=== PATIENT | male | born 1975 ===

== ENCOUNTER 2021-03-24 15:35 | Emergency (ER) | payer OTHER, SELFPAY ==
--- NOTE | ~2021-03-24 | XR_ITS ---
EXAMINATION: XR tibia fibula LT 2V, XR knee LT 4V CLINICAL INFORMATION: Reason for Exam knee/lower leg injury due to pain after playing sports COMPARISON: None available at the time of this dictation. TECHNIQUE: frontal, lateral, tunnel and patella sunrise views , frontal and lateral tibia-fibula. FINDINGS: BONES: No fracture or dislocation is present. JOINTS: Joint spaces are preserved. SOFT TISSUE: Normal XR/XR knee LT 4V IMPRESSION: No acute osseous changes. No fracture.
--- NOTE | ~2021-03-24 | US_ITS ---
EXAMINATION: US VENOUS ULTRASOUND WITH DOPPLER LOWER EXTREMITY, LEFT CLINICAL INFORMATION: Pain COMPARISON: None TECHNIQUE: Ultrasound of the deep veins is performed from the hip to the calf with compression sonography and color and pulse Doppler assessment. Spectral analysis with color-flow imaging is performed. FINDINGS: There is normal venous compression and respiratory variation and augmented flow. The visualized common femoral vein, superficial femoral vein, profunda femoral vein, popliteal vein, and the trifurcation region shows no evidence of deep venous thrombosis. There is no significant popliteal fossa cyst. If the patient's symptoms persist, followup ultrasound in 5 days 7 days might be of value to exclude proximal propagation from a non-visualized calf vein. US/US venous duplex LE LT IMPRESSION: No DVT demonstrated in the left lower extremity.
--- NOTE | ~2021-03-24 | XR_ITS ---
EXAMINATION: XR tibia fibula LT 2V, XR knee LT 4V CLINICAL INFORMATION: Reason for Exam knee/lower leg injury due to pain after playing sports COMPARISON: None available at the time of this dictation. TECHNIQUE: frontal, lateral, tunnel and patella sunrise views , frontal and lateral tibia-fibula. FINDINGS: BONES: No fracture or dislocation is present. JOINTS: Joint spaces are preserved. SOFT TISSUE: Normal XR/XR tibia fibula LT 2V IMPRESSION: No acute osseous changes. No fracture.
[2021-03-24 15:53] VITALS: BP 123/92; PULSE 81; RESP 18; TEMP 36.7; O2SAT 97; BMI 31.0
[2021-03-24 16:33] LABS: MANUAL DIFF FLAG NO
[2021-03-24 16:39] LABS: Basophils Percent Auto 0.3 % (0-2); Eosinophils Absolute Auto 0.1 X10*3/uL (0.0-0.4); Eosinophils Percent Auto 1.3 % (0-4); Hematocrit 40.9 % (42-52); Hemoglobin 13.9 g/dl (14.0-18.0); Imm Gran Abs Auto 0.02 X10*3/uL (0.00-0.03); Imm Gran Pct Auto 0.2 % (0.0-0.4); Lymphocytes Absolute Auto 2.4 X10*3/uL (1.2-4.9); Lymphocytes Percent Auto 25.7 % (20-40); Mean Corpuscular Hemoglobin 29.6 pg (27.0-33.0); Mean Corpuscular Volume 87.2 fL (80-98); Mean Platelet Volume 9.4 fL (9.4-12.4); Monocytes Absolute Auto 0.9 X10*3/uL (0.1-1.2); Monocytes Percent Auto 9.1 % (2-11); Neutrophils Percent Auto 63.4 % (45-73); Platelet Count 298 X10*3/uL (160-400); Red Blood Count 4.69 X10*6/uL (4.60-5.80); Red Cell Distribution Width 12.9 % (11.0-16.0); White Blood Count 9.4 X10*3/uL (4.8-10.8)
[2021-03-24 16:46] LABS: INTERNATIONAL NORM RATIO 1.5 (0.9-1.1); Prothrombin Time 16.9 SEC (9.9-13.0)
[2021-03-24 16:52] VITALS: BP 133/89; PULSE 76; RESP 18; TEMP 36.8; O2SAT 99
[2021-03-24 17:16] LABS: Anion Gap 15 (12-20); Blood Urea Nitrogen 25 mg/dL (9-16); Calcium 9.4 mg/dL (8.4-10.2); Carbon Dioxide 23 mmol/L (22-29); Chloride 107 mmol/L (96-108); Creatinine Clr Calc Pharmacy 132.8; Estimated Glomerular Filt Rate > 60; Glucose Random 89 mg/dL (60-115); Potassium 4.6 mmol/L (3.3-5.1); Sodium 140 mmol/L (135-145)
--- NOTE | 2021-03-24 17:56 | ED.EXTPRO ---
HPI - Extremity Problem General Chief complaint: General Medical Stated complaint: ordered him to get evaluated Time Seen by Provider: 03/24/21 16:54 Source: patient Mode of arrival: ambulatory Limitations: no limitations History of Present Illness HPI Narrative: 46-year-old male presenting to the ED with complaints of left knee/lower leg/calf pain after he was playing sports while he was running he fell a sharp pain and since then he has been having pain. He was sent by his primary care provider to rule out DVT. He denies any actual falls, dizziness, headaches, change of vision, nausea/vomiting, chest pain, shortness of breath, palpitations, dyspnea on exertion, orthopnea, hypercoagulation disorder, history of DVT or PE, recent surgery or immobilization, history of cancer or any estrogen usage or any other symptoms complaints or concerns at this time. MD Complaint: extremity pain Onset (ago): day(s) (Few days worse today) Pain Consistency: constant Location: left, lower extremity and knee Quality: constant and other (Pulling pain sensation) Radiation: distal Relieving factors: nothing Exacerbating factors: range of motion, weight bearing, walking and palpation Associated symptoms: denies other symptoms Related Data Previous Rx's Medication Instructions Recorded cyclobenzaprine 10 mg tablet 10 mg PO Q8H #10 tab 03/24/21 ibuprofen 800 mg tablet 800 mg PO Q8H PRN #14 tab 03/24/21 tramadol 50 mg tablet 50 mg PO BID PRN #14 tab 03/24/21 Allergies Allergy/AdvReac Type Severity Reaction Status Date / Time No Known Allergies Allergy Verified 03/24/21 15:55 Review of Systems Review of Systems: Constitutional : No Weight loss, No Fever, No Chills, No Night Sweats, No Fatigue, No Malaise ENT/Mouth : No Hearing loss, No Ear Pain, No Nasal Congestion, No Sinus Pain, No Hoarseness, No sore throat, No Rhinorrhea, No Swallowing Difficulty Eyes: No Eye Pain, No Swelling, No Redness, No Foreign Body, No Discharge, No Vision Changes Cardiovascular : No Chest Pain, No SOB, No Dyspnea on Exertion, No Orthopnea, No Edema, No Palpitations Respiratory : No Cough, No Sputum, No Wheezing, No Smoke Exposure, No Dyspnea Gastrointestinal : No Nausea, No Vomiting, No Diarrhea, No Constipation, No abdominal Pain, No Hematochezia, No Melena Genitourinary : no irregular bleeding, No Dysuria, No Urinary Frequency, No Hematuria, No Urinary Incontinence, No Urgency, No Flank Pain, No Urinary Flow Changes, No Hesitancy Musculoskeletal : Left knee joint pain/left lower extremity pain, No Myalgias, No Joint Swelling Skin : No Skin Lesions, No rash Neuro : No Weakness, No Numbness, No Paresthesias, No Loss of Consciousness, No Dizziness, No Headache Psych : No Anxiety/Panic, No Depression, No SI/HI/AH/VH, No Social Issues, Heme/Lymph: No Bruising, No Bleeding,No Lymphadenopathy Endocrine : No Polyuria, No Polydipsia, No Temperature Intolerance Yes all other systems are reviewed and are negative [facility] Past Medical History Attestation statement: The following information was validated with the patient. Social History Social History Advance Directives: No Advance Directives Information Provided: No Physical Exam Vital Signs: Vital Signs: Last Vital Signs Temp 98.3 F 03/24/21 16:52 Pulse 76 03/24/21 16:52 Resp 18 03/24/21 16:52 BP 133/89 03/24/21 16:52 Pulse Ox 99 03/24/21 16:52 Body Mass Index 31.0 vital signs have been reviewed as normal and appeared to be correct. Blood pressure mildly hypertensive at 123/92. Heart rate normal. Respiration rate normal. Temperature normal. Oxygen saturation normal. Appearance: Alert. Oriented X3. No acute distress. Head: Normal external exam. Normocephalic. Atraumatic. Eyes: PERRLA. EOMI. Conjunctiva and sclera normal. Eyelids normal. ENT: Pharynx normal. Uvula midline. Moist mucous membranes. Neck: Normal inspection. Neck supple. FROM. No adenopathy. No meningeal signs. CVS: Normal heart rate and rhythm. Heart sound normal. Pulses normal throughout. No murmurs/rales/gallops. Respiratory: No respiratory distress. Painless inspiration. Breath sounds normal. No wheezes/rales/rhonchi noted. Chest nontender. No accessory muscle usage noted or decreased air movement noted. Back: Full range of motion noted. No rashes/lesion/induration/fluctuance or signs of infection noted. Skin: Skin warm and dry. Normal skin color. Normal skin turgor. No rashes/lesions/lacerations noted. Extremities: Patient with tenderness palpation to left knee at the patellar and medial aspect although patient has full range of motion no obvious deformities or ligamentous laxity noted. No signs of infection or joint effusion noted. Patient with mild tenderness palpation to left lower leg with calf tenderness. No lower extremity edema. Otherwise all other Extremities exhibit normal range of motion and nontender. Neuro: Oriented X 3. No motor deficit. No sensory deficit. Reflexes normal. Normal steady gait. No focal neuro deficits noted. Vascular: + radial pulses/+ 2 distal pedal pulses/+2 dorsalis pedis b/l. Normal cap refill. No cyanosis noted to upper extremity nails and lower extremity toes nails. Course Course Course Narrative: 17pm - 46-year-old male presenting to the ED with complaints of left knee/lower leg/calf pain after he was playing sports while he was running he fell a sharp pain and since then he has been having pain. He was sent by his primary care provider to rule out DVT. Plan: Labs, venous duplex ultrasound of left lower extremity x-ray of left knee and tibia-fibula then re-evaluate. Reevaluation(s) Reevaluation #1: - labs obtained and patient with a mild baseline anemia. BUN 25. Venous duplex ultrasound of left lower extremity negative for DVT. X-ray of left knee and left lower leg negative for any fractures or any other acute processes. Therefore patient most likely muscle strain. His tendons appear to be intact. Will DC home with symptomatic treatment and instructions return if any new or worsening symptoms to follow up with primary care provider. Patient understands agrees with this plan. Time: 18:34 MDM - Extremity (Nontraumatic) Medical Records Attestation: I reviewed the patient's medical records. Lab Data Result diagrams: 03/24/21 16:24 03/24/21 16:24 Labs: Lab Results 03/24/21 03/24/21 03/24/21 Range/Units 16:24 16:24 16:24 WBC 9.4 (4.8-10.8) X10*3/uL RBC 4.69 (4.60-5.80) X10*6/uL Hgb 13.9 L (14.0-18.0) g/dl Hct 40.9 L (42-52) % MCV 87.2 (80-98) fL MCH 29.6 (27.0-33.0) pg MCHC 34.0 (31.0-36.0) g/dl RDW 12.9 (11.0-16.0) % Plt Count 298 (160-400) X10*3/uL MPV 9.4 (9.4-12.4) fL Immature Gran % (Auto) 0.2 (0.0-0.4) % Neut % (Auto) 63.4 (45-73) % Lymph % (Auto) 25.7 (20-40) % [place] % (Auto) 9.1 (2-11) % Eos % (Auto) 1.3 (0-4) % Baso % (Auto) 0.3 (0-2) % Lymph # (Auto) 2.4 (1.2-4.9) X10*3/uL [place] # (Auto) 0.9 (0.1-1.2) X10*3/uL Eos # (Auto) 0.1 (0.0-0.4) X10*3/uL Baso # (Auto) 0.0 (0.0-0.2) X10*3/uL Abs Immat Gran (auto) 0.02 (0.00-0.03) X10*3/uL Absolute Neuts (auto) 6.0 (2.0-8.3) X10*3/uL Absolute Nucleated RBC 0.000 (0.0-0.012) X10*3/uL Nucleated RBC % (auto) 0.0 (0.0-0.2) /100WBC PT 16.9 H (9.9-13.0) SEC INR 1.5 H (0.9-1.1) Sodium 140 (135-145) mmol/L Potassium 4.6 (3.3-5.1) mmol/L Chloride 107 (96-108) mmol/L Carbon Dioxide 23 (22-29) mmol/L Anion Gap 15 (12-20) BUN 25 H (9-16) mg/dL Creatinine 0.80 (0.5-1.4) mg/dL Estim Creat Clear Calc 132.8 Estimated GFR > 60 Random Glucose 89 (60-115) mg/dL Calcium 9.4 (8.4-10.2) mg/dL Imaging Data Venous duplex ultrasound of left lower extremity: Attestation: I personally reviewed and interpreted this imaging study as follows: Radiologist's impression: FINDINGS: There is normal venous compression and respiratory variation and augmented flow. The visualized common femoral vein, superficial femoral vein, profunda femoral vein, popliteal vein, and the trifurcation region shows no evidence of deep venous thrombosis. ? There is no significant popliteal fossa cyst. If the patient's symptoms persist, followup ultrasound in 5 days 7 days might be of value to exclude proximal propagation from a non-visualized calf vein. US/US venous duplex LE LT IMPRESSION: No DVT demonstrated in the left lower extremity. Left tibia/fibula x-ray and left knee x-ray: Attestation: I personally reviewed and interpreted this imaging study as follows: Radiologist's impression: FINDINGS: BONES: No fracture or dislocation is present. JOINTS: Joint spaces are preserved. SOFT TISSUE: Normal XR/XR tibia fibula LT 2V IMPRESSION: No acute osseous changes. No fracture.? FINDINGS: BONES: No fracture or dislocation is present. JOINTS: Joint spaces are preserved. SOFT TISSUE: Normal XR/XR knee LT 4V IMPRESSION: No acute osseous changes. No fracture.? Discharge Plan Discharge Clinical Impression: Muscle strain of left lower extremity Patient Disposition: Home, Self-Care Instructions: Muscle Strain (ED) Prescriptions: New cyclobenzaprine 10 mg tablet 10 mg PO Q8H Qty: 10 RF: 0 ibuprofen 800 mg tablet 800 mg PO Q8H PRN (Reason: pain) Qty: 14 RF: 0 tramadol 50 mg tablet 50 mg PO BID PRN (Reason: pain) Qty: 14 RF: 0 Referrals: Birdie Chicas MD [Primary Care Provider] - 2 days Stand Alone Forms: Work/School Release Print Language: [place]
== END 2021-03-24 18:58 | disposition home or self-care (01) ==
PROVIDERS: Emergency Provider Emergency Medicine; PCP Internal Medicine
DX: S86.912A Strain of unspecified muscle(s) and tendon(s) at lower leg level, left leg, initial encounter (principal); X50.9XXA Other and unspecified overexertion or strenuous movements or postures, initial encounter; M79.662 Pain in left lower leg; Y93.02 Activity, running; Y92.39 Other specified sports and athletic area as the place of occurrence of the external cause; Y99.9 Unspecified external cause status
CPT/HCPCS: 36415; 73564; 73590; 80048; 85025; 85610; 93971; 99283; 99284

== ENCOUNTER 2021-08-02 11:38 | Outpatient (REF) | payer OTHER, SELFPAY ==
[2021-08-02 13:34] LABS: Prostate Specific Antigen 0.68 ng/mL (<0.05-4.0)
== END 2021-08-02 11:39 | disposition home or self-care (01) ==
LOC: HO.LAB 11:38
PROVIDERS: PCP Internal Medicine; Visit Provider Internal Medicine
DX: Z12.5 Encounter for screening for malignant neoplasm of prostate (principal)
CPT/HCPCS: 36415; 84153

== ENCOUNTER 2021-09-20 08:22 | Outpatient (REF) | payer OTHER, SELFPAY ==
--- NOTE | ~2021-09-20 | XR_ITS ---
EXAMINATION: XR HAND, LEFT CLINICAL INFORMATION: Left hand pain COMPARISON: None TECHNIQUE: PA, lateral, and oblique views of the left hand. XR/XR hand LT min 3V FINDINGS AND IMPRESSION: Bones have normal alignment throughout the hand and wrist. The joint spaces are maintained. Acute intra-articular fracture at the dorsal base of the distal phalanx of the fourth digit is nondisplaced. Soft tissues are mildly swollen in the fourth digit. No other fractures.
== END 2021-09-20 08:23 | disposition home or self-care (01) ==
LOC: HO.HOSX 08:22
PROVIDERS: Visit Provider Orthopaedic Surgery
DX: S62.635A Displaced fracture of distal phalanx of left ring finger, initial encounter for closed fracture (principal); S63.635A Sprain of interphalangeal joint of left ring finger, initial encounter
CPT/HCPCS: 26750; 73130; 99202

== ENCOUNTER 2021-11-08 09:28 | Outpatient (REF) | payer OTHER, SELFPAY ==
--- NOTE | ~2021-11-08 | XR_ITS ---
EXAMINATION: XR HAND, LEFT CLINICAL INFORMATION: Pain COMPARISON: None TECHNIQUE: PA, lateral, and oblique views of the left hand. FINDINGS: There is a mildly displaced fracture involving the dorsal and ulnar base of the fourth distal phalanx with intra-articular extension. No additional fractures. Soft tissues unremarkable. No radiopaque foreign bodies. XR/XR hand LT min 3V IMPRESSION: Mildly displaced fracture of the dorsal and ulnar base of the fourth distal phalanx with intra-articular extension.
== END 2021-11-08 09:29 | disposition home or self-care (01) ==
LOC: HO.HOSX 09:28
PROVIDERS: Visit Provider Orthopaedic Surgery
DX: S62.635D Displaced fracture of distal phalanx of left ring finger, subsequent encounter for fracture with routine healing (principal); X58.XXXD Exposure to other specified factors, subsequent encounter
CPT/HCPCS: 73130; 99212

== ENCOUNTER 2022-10-11 14:28 | Outpatient (REF) | payer OTHER, SELFPAY ==
[2022-10-11 16:24] LABS: Prostate Specific Antigen Scr 1.11 ng/mL (<0.05-4.0)
== END 2022-10-11 14:29 | disposition home or self-care (01) ==
LOC: HO.LAB 14:28
PROVIDERS: PCP Internal Medicine; Visit Provider Internal Medicine
DX: G47.33 Obstructive sleep apnea (adult) (pediatric) (principal); I10 Essential (primary) hypertension; Z80.42 Family history of malignant neoplasm of prostate; Z12.5 Encounter for screening for malignant neoplasm of prostate
CPT/HCPCS: 36415; 84153

== ENCOUNTER 2023-04-26 06:42 | Day surgery (SDC) | payer OTHER, SELFPAY ==
--- NOTE | 2023-04-25 10:14 | HO.ANESPROP2 ---
Documented by User: Corrina Kay NP 04/25/23 10:15 HPI - Anesthesia Eval Consult details Narrative: 48yo M for Colonoscopy PMFSH Active Problems Active Problems: All Active Problems (Updated 04/25/23 @ 07:50 by Kerri Damon) Sprain of interphalangeal joint of left ring finger, initial encounter (Acute) Fracture of distal phalanx of left ring finger (Acute) Past Medical History Medical History (Updated 04/25/23 @ 07:50 by Kerri Damon) Environmental allergies Obstructive sleep apnea HLD (hyperlipidemia) HTN (hypertension) Surgical History Surgical History (Updated 04/26/23 @ 06:54 by Naheed Mason, JUAN) Hx of colonoscopy No pertinent past surgical history Social History Social History Patient Tobacco Use Status: Never used Tobacco Are you DNR?: No Advance Directives: No Advance Directives Information Provided: Yes Recently lost weight without trying: No Nutrition Risks: No Nutritional Risk Current occupational status: employed 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 Meds Allergies Allergy/AdvReac Type Severity Reaction Status Date / Time No Known Allergies Allergy Verified 09/20/21 09:52 Home Medications Medication Instructions Recorded Confirmed Last Taken Type No Known Home Meds 04/26/23 04/26/23 Unknown History Exam Exam Date and Time: April 25, 2023 1014 Assessment and Plan Assessment Anesthesia Assessment: Chart Reviewed Documented by User: Davida Atkins MD 04/26/23 07:11 [facility] Past Medical History Medical History (Updated 04/25/23 @ 07:50 by Kerri Damon) Environmental allergies Obstructive sleep apnea HLD (hyperlipidemia) HTN (hypertension) Family History Family history of problems with anesthesia: No Surgical History Surgical History (Updated 04/26/23 @ 06:54 by Naheed Mason RN) Hx of colonoscopy No pertinent past surgical history History of Problems with Anesthesia: No Social History Social History Patient Tobacco Use Status: Never used Tobacco Are you DNR?: No Advance Directives: No Advance Directives Information Provided: Yes Recently lost weight without trying: No Nutrition Risks: No Nutritional Risk Current occupational status: employed 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 Meds Allergies Allergy/AdvReac Type Severity Reaction Status Date / Time No Known Allergies Allergy Verified 09/20/21 09:52 Home Medications Medication Instructions Recorded Confirmed Last Taken Type No Known Home Meds 04/26/23 04/26/23 Unknown History Exam Airway Mallampati Class: III TM Dist: >3cm Neck ROM: Full Assessment and Plan Assessment Anesthesia Assessment: Anesthesia Plan Discussed Final Anesthetic Review Family History of Problems with Anesthesia: No History of Problems with Anesthesia: No NPO: Yes ASA Class: II Final Preanesthetic Review: No Changes in Pt Med Stat, Meds/Allgs Chart Reviewed, Consent Obtained/Reviewed and Anes Risks/Benef Reviewed Patient Risk: Intermediate Procedure Risk: Low Anesthetic Plan Anesthetic Plan: MAC: Disposition: Standard PACU
[2023-04-26 06:55] VITALS: BMI 31.5
[2023-04-26 06:59] VITALS: BP 133/88; PULSE 81; RESP 18; TEMP 36.1; O2SAT 98
[2023-04-26] MEDS: Lactated Ringers 1,000 ML 100 ML IVCONT (07:05)
--- NOTE | 2023-04-26 07:30 | MHC.SHP ---
Pre-Procedural Eval Section A Date of Service: 04/26/23 Section B Chief Complaint: screening Details of Present Illness: see H&P no changes Relevant Family History (Specify if Yes): No Relevant Social History: None Present Medications: see Short Stay Collaborative assessment Medical History: No relevant PMH History of Previous Operations: No relevant previous surgery Allergies: Allergies Allergy/AdvReac Type Severity Reaction Status Date / Time No Known Allergies Allergy Verified 09/20/21 09:52 Review of Systems Sugical H&P ROS: Negative: Constitution, Cardiovascular, Respiratory, Neurological, Psychiatric, Hem-Onc, Allergic/Immunologic, Gastrointestinal, Genitourinary, Musculoskeletal, Integumentary, Endocrine and Eyes/Ears/Nose/Throat Exam Surgical H&P Exam: Normal: HEENT, Normal: Heart, Normal: Lungs, Normal: Extremities, Normal: Abdomen, Normal: Skin and Normal: Neurological Plan Diagnosis/Plan: Unchanged I have reviewed the history and physical and performed a pertinent physical examination on my patient. No changes have occurred unless specified. Time Spent With Patient Time: Total time managing care of this patient today ____ minutes.
[2023-04-26 08:07] VITALS: BP 126/80; PULSE 79; RESP 16; TEMP 36.6; O2SAT 99
--- NOTE | 2023-04-26 08:13 | PM.OP ---
Brief Operative Note Date of Service: 04/26/23 Pre-op diagnosis: screening Post-op diagnosis: same Procedure: colonoscopy Surgeon: César Hairston Anesthesia: MAC Was an Kindergarten Teacher Assistant used for this Procedure?: No Estimated blood loss (mL): 5 Pathology: other Condition: stable Disposition: PACU
[2023-04-26 08:22] VITALS: BP 133/87; PULSE 70; RESP 16; O2SAT 100
--- NOTE | 2023-04-26 09:02 | OP_ITS ---
DATE OF SERVICE: 04/26/2023 SURGEON: César Hairston MD INDICATIONS: Colon cancer screening. PREOPERATIVE DIAGNOSIS: POSTOPERATIVE DIAGNOSIS: PROCEDURE PERFORMED: Colonoscopy to the terminal ileum with biopsy. ESTIMATED BLOOD LOSS: COMPLICATIONS: ANESTHESIA: Monitored anesthesia care. ASSISTANTS: SPECIMENS: DESCRIPTION OF PROCEDURE: A history and physical was performed, the risks and benefits of the procedure were explained to the patient. Informed consent was obtained. The patient was placed in left lateral decubitus position. A digital rectal exam was performed and was found to be normal. The Olympus pediatric video colonoscope was introduced into the rectum and advanced to the cecum. The cecum was identified by transillumination, palpation, and identification of ileocecal valve. Examination was performed. The scope was removed. He tolerated the procedure well and was taken to recovery in stable condition. FINDINGS: The terminal ileum was examined and appeared normal. The visualized colonic mucosa was normal. The quality of the prep was good. A single polyp measuring less than 5 mm was identified and removed with biopsy forceps. The polyp was located at 35 cm from anal verge. Retroflexed examination showed some small internal hemorrhoids. IMPRESSION: Colon polyp. RECOMMENDATIONS: Follow up with the biopsy results. MD VIKY Arguello/CARMEN / [id number]
== END 2023-04-26 08:51 | disposition home or self-care (01) ==
PROVIDERS: PCP Internal Medicine; Visit Provider Internal Medicine Gastroenterology
PROC: 0DJD8ZZ Inspection of Lower Intestinal Tract, Via Natural or Artificial Opening Endoscopic (ICD-10-PCS; CPT 45378; principal; 2023-04-26 07:30)
DX: Z12.11 Encounter for screening for malignant neoplasm of colon (principal); Z83.71 Family history of colonic polyps; D12.5 Benign neoplasm of sigmoid colon; K64.8 Other hemorrhoids; I10 Essential (primary) hypertension; E78.5 Hyperlipidemia, unspecified; G47.33 Obstructive sleep apnea (adult) (pediatric); Z99.89 Dependence on other enabling machines and devices
CPT/HCPCS: 45380; 88305

== ENCOUNTER 2023-05-02 14:08 | Outpatient (REF) | payer OTHER, SELFPAY ==
[2023-05-02 15:40] LABS: Alanine Aminotransferase 25 U/L (0-40); Albumin Level 4.3 g/dL (3.5-5.0); Alkaline Phosphatase 62 U/L (39-117); Anion Gap 15 (12-20); Aspartate Amino Transferase 22 U/L (5-37); Bilirubin Total 0.9 mg/dL (0.0-1.0); Blood Urea Nitrogen 21 mg/dL (9-16); Calcium 9.3 mg/dL (8.4-10.2); Carbon Dioxide 23 mmol/L (22-29); Chloride 104 mmol/L (96-108); Cholesterol 170 mg/dL (<200); Estimated Glomerular Filt Rate > 60; Glucose Random 83 mg/dL (60-115); HDL Cholesterol 37 mg/dL (>40); LDL Cholesterol Calculated 97 mg/dL (<100); Potassium 3.7 mmol/L (3.3-5.1); Sodium 138 mmol/L (135-145); Total Protein 7.5 g/dL (6.5-8.0); Triglycerides 180 mg/dL (<150)
== END 2023-05-02 14:09 | disposition home or self-care (01) ==
LOC: HO.LAB 14:08
PROVIDERS: PCP Internal Medicine; Visit Provider Internal Medicine
DX: Z00.00 Encounter for general adult medical examination without abnormal findings (principal); I10 Essential (primary) hypertension; G47.33 Obstructive sleep apnea (adult) (pediatric); Z86.010 Personal history of colon polyps
CPT/HCPCS: 36415; 80053; 80061

== ENCOUNTER 2023-06-27 19:25 | Emergency (ER) | payer OTHER, SELFPAY ==
[2023-06-27 19:47] VITALS: BP 151/105; PULSE 94; RESP 16; TEMP 36.9; O2SAT 98; BMI 31.2
--- NOTE | 2023-06-27 19:50 | ED.GENADULT ---
HPI - General Adult General Chief complaint: Skin/Abscess/Foreign Body Stated complaint: foreign object in nose Time Seen by Provider: 06/27/23 20:52 Source: patient Mode of arrival: ambulatory Limitations: no limitations History of Present Illness HPI narrative: Patient comes to the emergency room complaining of an abscess on the left nostril lateral side. Patient states that 2 days ago he was seen at Urgent Care, prescribed mupirocin and clindamycin. Patient states that he is not improving much. However, now he is concerned that he is developing diarrhea. Patient denies frequent watery bowel movements. No fever or chills. Related Data Previous Rx's Medication Instructions Recorded Lactobacillus rhamnosus GG 15 1 cap PO DAILY #30 caps 06/27/23 billion cell sprinkle capsule (Culturelle) sulfamethoxazole 800 1 tab PO BID #13 tabs 06/27/23 mg-trimethoprim 160 mg tablet (Bactrim DS) Allergies Allergy/AdvReac Type Severity Reaction Status Date / Time No Known Allergies Allergy Verified 09/20/21 09:52 Review of Systems Review of Systems: Constitutional : No Weight loss, No Fever, No Chills, No Night Sweats, No Fatigue, No Malaise ENT/Mouth : No Hearing loss, No Ear Pain, No Nasal Congestion, No Sinus Pain, No Hoarseness, No sore throat, No Rhinorrhea, No Swallowing Difficulty Eyes: No Eye Pain, No Swelling, No Redness, No Foreign Body, No Discharge, No Vision Changes Cardiovascular : No Chest Pain, No SOB, No Dyspnea on Exertion, No Orthopnea, No Edema, No Palpitations Respiratory : No Cough, No Sputum, No Wheezing, No Smoke Exposure, No Dyspnea Gastrointestinal : No Nausea, No Vomiting, No Diarrhea, No Constipation, No abdominal Pain, No Hematochezia, No Melena Genitourinary : no irregular bleeding, No Dysuria, No Urinary Frequency, No Hematuria, No Urinary Incontinence, No Urgency, No Flank Pain, No Urinary Flow Changes, No Hesitancy Musculoskeletal : No joint pain, No Myalgias, No Joint Swelling Skin : Abscess in the left nostril Neuro : No Weakness, No Numbness, No Paresthesias, No Loss of Consciousness, No Dizziness, No Headache Psych : No Anxiety/Panic, No Depression, No SI/HI/AH/VH, No Social Issues, Heme/Lymph: No Bruising, No Bleeding,No Lymphadenopathy Endocrine : No Polyuria, No Polydipsia, No Temperature Intolerance [facility] Past Medical History Medical History Environmental allergies Obstructive sleep apnea HLD (hyperlipidemia) HTN (hypertension) Surgical History (Updated 04/26/23 @ 06:54 by Naheed Mason RN) Hx of colonoscopy No pertinent past surgical history Social History Patient Tobacco Use Status: Never used Tobacco Smoked in Last 30 Days: No Use of substances other than those prescribed or required for medical reasons: No Advance Directives: No Advance Directives Information Provided: No Current occupational status: employed 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 Oriented X3. No acute distress. Eyes: Pupils equal, round and reactive to light. No periorbital cellulitis ENT: Pharynx normal. There is a small abscess on the lateral wall of the nostril on the left. Draining serosanguineous fluid Neck: Normal inspection. Neck supple. No lymph nodes noted. No crepitus CVS: Normal heart rate and rhythm. Pulses normal. Normal S1 and S2 Respiratory: No respiratory distress. Breath sounds normal. No Wheezing. No rales Abdomen: Soft and nontender. No rigidity. No distention. Skin: Skin warm and dry. Normal skin color. Normal skin turgor. Extremities: No lower extremity edema. No Lacerations. No Rash Neuro: Oriented X 3. No motor deficit. No sensory deficit. Moving all extremities. No slurred speech. CN 2 through 12 grossly intact Psych: calm, cooperative, normal affect Course Course Course Narrative: This is a rapid medical exam: Additional HPI, ROS, PE not included below will be deferred to primary provider. Patient is a 48-year-old male presenting to the ED with complaint of pain and swelling to left nare for over a week. He went to urgent care on Saturday and was prescribed clindamycin and mupirocin, has been taking as prescribed without worsening or improvement in symptoms. Denies fevers. Reports area has been draining bloody purulent fluid. Medical Decision Making Medical Decision Making MDM Narrative: -with Q-tips I was able to drain more serosanguineous fluid from a small opening draining the fluid from the wall of the nostril. Very scant amount of falls. -however, I discussed with the patient that I recommend switching the antibiotics especially now he is getting diarrhea with clindamycin. Patient does not have any other allergies, patient has no fever chills. I discussed with the patient that he would be best to switch his antibiotics to an an antibiotic that covers MRSA such as Bactrim. Patient agreeable with plan. Also discussed with the patient to start taking probiotics and eating more yogurt Differential Diagnosis Differential Diagnoses: The differential diagnosis associated with the presentation includes (Cellulitis, abscess) Discharge Plan Discharge Clinical Impression: Cellulitis of nose Patient Disposition: Home, Self-Care Instructions: Cellulitis (ED) Additional Instructions: Please follow-up with your primary care physician tomorrow. If you have any worsening or new symptoms, please return to the emergency room or call 911 Prescriptions: New sulfamethoxazole-trimethoprim [Bactrim DS] 800-160 mg tablet 1 tab PO BID Qty: 13 0RF Culturelle 15 billion cell capsule, sprinkle 1 cap PO DAILY Qty: 30 0RF
[2023-06-27 21:25] VITALS: BP 145/85; PULSE 76; RESP 18; TEMP 36.7; O2SAT 96
[2023-06-27] MEDS: Sulfamethox/Trimeth 800/160 TABLET 1 TAB PO (21:40)
== END 2023-06-27 21:43 | disposition home or self-care (01) ==
PROVIDERS: Emergency Provider Emergency Medicine; PCP Internal Medicine
DX: J34.0 Abscess, furuncle and carbuncle of nose (principal); R19.7 Diarrhea, unspecified; I10 Essential (primary) hypertension; E78.5 Hyperlipidemia, unspecified
CPT/HCPCS: 99283; 99284

== ENCOUNTER → 2024-02-04 19:14 | Outpatient (BNV) | payer OTHER, SELFPAY | PROVIDERS: Emergency Provider Emergency Medicine; PCP Internal Medicine; Visit Provider Internal Medicine | DX: R07.9 Chest pain, unspecified (principal) | CPT/HCPCS: 93010 ==

== ENCOUNTER 2024-02-04 19:15 | Emergency (ER) | payer OTHER, SELFPAY ==
--- NOTE | 2024-02-04 | ECG_ITS ---
Test Reason : chest pain Blood Pressure : / mmHG Vent. Rate : 073 BPM Atrial Rate : 073 BPM P-R Int : 154 ms QRS Dur : 084 ms QT Int : 358 ms P-R-T Axes : 046 025 023 degrees QTc Int : 394 ms Normal sinus rhythm Normal ECG No previous ECGs available Referred By: Generic ED Physician Electronically Signed By:MANUELA SIDHU
--- NOTE | ~2024-02-04 | XR_ITS ---
EXAMINATION: XR CHEST CLINICAL INFORMATION: Chest pain COMPARISON: None. TECHNIQUE: 2 views of the chest were obtained. FINDINGS: No significant abnormality is noted involving the heart, lungs, mediastinum, bony thorax or soft tissues. XR/XR chest 2V IMPRESSION: Unremarkable chest examination.
[2024-02-04 19:23] VITALS: BP 125/75; PULSE 77; RESP 18; TEMP 36.4; O2SAT 99; BMI 32.6
--- NOTE | 2024-02-04 19:26 | ED.GENADULT ---
HPI - General Adult General Chief complaint: Chest Pain Stated complaint: chest pain and left arm pain Time Seen by Provider: 02/04/24 21:56 Source: patient Mode of arrival: ambulatory Limitations: no limitations History of Present Illness ED Provider: Dr. Onelia Melara HPI narrative: Patient comes to the emergency room complaining of left-sided chest pain radiating towards the left arm. Patient states it started around 16:00, lasted for about 3 hours and then self resolved. At this time, patient has no chest pain or shortness of breath, no left arm pain. Patient denies any past cardiac medical issues Related Data Previous Rx's ?Medication ?Instructions ?Recorded Lactobacillus rhamnosus GG 15 1 cap PO DAILY #30 caps 06/27/23 billion cell sprinkle capsule (Culturelle) sulfamethoxazole 800 1 tab PO BID #13 tabs 06/27/23 mg-trimethoprim 160 mg tablet (Bactrim DS) Allergies Allergy/AdvReac Type Severity Reaction Status Date / Time No Known Allergies Allergy Verified 02/04/24 19:28 Review of Systems Review of Systems: Constitutional : No Weight loss, No Fever, No Chills, No Night Sweats, No Fatigue, No Malaise ENT/Mouth : No Hearing loss, No Ear Pain, No Nasal Congestion, No Sinus Pain, No Hoarseness, No sore throat, No Rhinorrhea, No Swallowing Difficulty Eyes: No Eye Pain, No Swelling, No Redness, No Foreign Body, No Discharge, No Vision Changes Cardiovascular : Complaining of chest pain in the left radiating towards the left arm, self-resolved, asymptomatic at this time, No SOB, No Dyspnea on Exertion, No Orthopnea, No Edema, No Palpitations Respiratory : No Cough, No Sputum, No Wheezing, No Smoke Exposure, No Dyspnea Gastrointestinal : No Nausea, No Vomiting, No Diarrhea, No Constipation, No abdominal Pain, No Hematochezia, No Melena Genitourinary : no irregular bleeding, No Dysuria, No Urinary Frequency, No Hematuria, No Urinary Incontinence, No Urgency, No Flank Pain, No Urinary Flow Changes, No Hesitancy Musculoskeletal : No joint pain, No Myalgias, No Joint Swelling Skin : No Skin Lesions, No rash Neuro : No Weakness, No Numbness, No Paresthesias, No Loss of Consciousness, No Dizziness, No Headache Psych : No Anxiety/Panic, No Depression, No SI/HI/AH/VH, No Social Issues, Heme/Lymph: No Bruising, No Bleeding,No Lymphadenopathy Endocrine : No Polyuria, No Polydipsia, No Temperature Intolerance [facility] Past Medical History Medical History Environmental allergies Obstructive sleep apnea HLD (hyperlipidemia) HTN (hypertension) Surgical History Hx of colonoscopy No pertinent past surgical history Social History Social History Patient Tobacco Use Status: Never used Tobacco Advance Directives: No Advance Directives Information Provided: No Do you have a plan to hurt others: No Plan Current occupational status: employed 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 Oriented X3. No acute distress. Eyes: Pupils equal, round and reactive to light. ENT: Pharynx normal. Neck: Normal inspection. Neck supple. No lymph nodes noted. No crepitus CVS: Normal heart rate and rhythm. Pulses normal. Normal S1 and S2 Respiratory: No respiratory distress. Breath sounds normal. No Wheezing. No rales Abdomen: Soft and nontender. No rigidity. No distention. Skin: Skin warm and dry. Normal skin color. Normal skin turgor. Extremities: No lower extremity edema. No Lacerations. No Rash Neuro: Oriented X 3. No motor deficit. No sensory deficit. Moving all extremities. No slurred speech. CN 2 through 12 grossly intact Psych: calm, cooperative, normal affect Course Course Course Narrative: This is a rapid medical exam performed by Ericka Ram NP: Additional HPI, ROS, PE not included below will be deferred to primary provider. Patient is a 49-year-old male presenting to the ED with complaint of chest pain radiating to left arm when leaving work today. Denies dyspnea, nausea, dizziness. Plan: EKG, labs, cxr Medical Decision Making Medical Decision Making MDM Narrative: -my interpretation of labs: Hematology and chemistry within normal limits, 1st troponin is negative. -my interpretation of EKG: Normal sinus rhythm, heart rate 73, no ST segment depression or elevation, no T-wave inversion, QTC 394 -my interpretation of chest x-ray, no obvious abnormality, no consolidation -the physical exam is reassuring Plan: Repeat troponin at 22:30 -I discussed with the patient that at this time all of his labs and imaging are reassuring. If patient continues having the symptoms, patient would benefit from a stress test for which he can be referred by his primary care physician -troponin x2 negative, patient remains asymptomatic Differential Diagnosis Differential Diagnoses: The differential diagnosis associated with the presentation includes (Atypical chest pain, musculoskeletal chest pain, ACS) Admission/Observation Consideration of admission/observation: Escalation of care including admission/observation considered (Given patient's description of symptoms, observation was considered) Lab Data [facility] Lab Attestation statement: I reviewed the patient's lab results. 02/04/24 19:41 02/04/24 19:41 Labs: Lab Results 02/04/24 02/04/24 Range/Units 19:41 22:39 WBC 8.6 (4.8-10.8) X10*3/uL RBC 4.54 L (4.60-5.80) X10*6/uL Hgb 13.8 L (14.0-18.0) g/dl Hct 39.0 L (42.0-52.0) % MCV 85.9 (80.0-98.0) fL MCH 30.4 (27.0-33.0) pg MCHC 35.4 (31.0-36.0) g/dl RDW 13.2 (11.0-16.0) % Plt Count 268 (160-400) X10*3/uL MPV 9.1 L (9.4-12.4) fL Immature Gran % (Auto) 0.2 (0.0-0.4) % Neut % (Auto) 61.2 (45-73) % Lymph % (Auto) 27.3 (20-40) % [place] % (Auto) 8.6 (2-11) % Eos % (Auto) 2.3 (0-4) % Baso % (Auto) 0.4 (0-2) % Lymph # (Auto) 2.3 (1.2-4.9) X10*3/uL [place] # (Auto) 0.7 (0.1-1.2) X10*3/uL Eos # (Auto) 0.2 (0.0-0.4) X10*3/uL Baso # (Auto) 0.0 (0.0-0.2) X10*3/uL Abs Immat Gran (auto) 0.02 (0.00-0.03) X10*3/uL Absolute Neuts (auto) 5.2 (2.0-8.3) x10*3/uL Absolute Nucleated RBC 0.000 (0.0-0.012) X10*3/uL Nucleated RBC % (auto) 0.0 (0.0-0.2) /100WBC PT 16.9 H (11.1-13.3) SEC INR 1.4 H (0.9-1.1) Sodium 142 (135-145) mmol/L Potassium 3.7 (3.3-5.1) mmol/L Chloride 108 (96-108) mmol/L Carbon Dioxide 25 (22-29) mmol/L Anion Gap 13 (12-20) BUN 21 H (9-16) mg/dL Creatinine 0.91 (0.5-1.4) mg/dL Estim Creat Clear Calc 115.7 Estimated GFR > 60 Random Glucose 105 (60-115) mg/dL Calcium 9.7 (8.4-10.2) mg/dL Total Bilirubin 0.4 (0.0-1.0) mg/dL AST 18 (5-37) U/L ALT 21 (0-40) U/L Alkaline Phosphatase 63 (39-117) U/L Troponin I High Sens < 2.7 < 2.7 (<3.5-35.0) ng/L Total Protein 7.3 (6.5-8.0) g/dL Albumin 4.2 (3.5-5.0) g/dL Independent Interpretation I performed an independent interpretation of an: EKG and Plain X-Ray Radiology Impression Discussion of test interpretation with radiology: I have reviewed the radiologist's reading. Radiologist Impression: FINDINGS: No significant abnormality is noted involving the heart, lungs, mediastinum, bony thorax or soft tissues. XR/XR chest 2V IMPRESSION: Unremarkable chest examination. Critical Care Time Critical Care Time Critical Care Time: Yes Total Critical Care Time: 35 Attestation: I have personally provided critical care time. Time includes review of lab data, radiology results, discussion with consultants, and monitoring for potential decompensation. Intervention performed as documented. Discharge Plan Discharge Clinical Impression: Atypical chest pain Patient Disposition: Home, Self-Care Instructions: Chest Pain (ED) Additional Instructions: Please follow-up with your primary care physician tomorrow. If you have any worsening or new symptoms, please return to the emergency room or call 911 Prescriptions: No Action sulfamethoxazole-trimethoprim [Bactrim DS] 800-160 mg tablet 1 tab PO BID Qty: 13 0RF Culturelle 15 billion cell capsule, sprinkle 1 cap PO DAILY Qty: 30 0RF Print Language: [place]
[2024-02-04 19:44] LABS: MANUAL DIFF FLAG NO
[2024-02-04 19:46] LABS: Basophils Percent Auto 0.4 % (0-2); Eosinophils Absolute Auto 0.2 X10*3/uL (0.0-0.4); Eosinophils Percent Auto 2.3 % (0-4); Hemoglobin 13.8 g/dl (14.0-18.0); Imm Gran Abs Auto 0.02 X10*3/uL (0.00-0.03); Imm Gran Pct Auto 0.2 % (0.0-0.4); Lymphocytes Absolute Auto 2.3 X10*3/uL (1.2-4.9); Lymphocytes Percent Auto 27.3 % (20-40); Mean Corpuscular HGB Conc 35.4 g/dl (31.0-36.0); Mean Corpuscular Hemoglobin 30.4 pg (27.0-33.0); Mean Corpuscular Volume 85.9 fL (80.0-98.0); Mean Platelet Volume 9.1 fL (9.4-12.4); Monocytes Absolute Auto 0.7 X10*3/uL (0.1-1.2); Monocytes Percent Auto 8.6 % (2-11); Neutrophils Absolute Auto 5.2 x10*3/uL (2.0-8.3); Neutrophils Percent Auto 61.2 % (45-73); Platelet Count 268 X10*3/uL (160-400); Red Blood Count 4.54 X10*6/uL (4.60-5.80); Red Cell Distribution Width 13.2 % (11.0-16.0); White Blood Count 8.6 X10*3/uL (4.8-10.8)
[2024-02-04 20:02] LABS: Alanine Aminotransferase 21 U/L (0-40); Albumin Level 4.2 g/dL (3.5-5.0); Alkaline Phosphatase 63 U/L (39-117); Anion Gap 13 (12-20); Aspartate Amino Transferase 18 U/L (5-37); Bilirubin Total 0.4 mg/dL (0.0-1.0); Blood Urea Nitrogen 21 mg/dL (9-16); Calcium 9.7 mg/dL (8.4-10.2); Carbon Dioxide 25 mmol/L (22-29); Chloride 108 mmol/L (96-108); Creatinine Clr Calc Pharmacy 115.7; Estimated Glomerular Filt Rate > 60; Glucose Random 105 mg/dL (60-115); Potassium 3.7 mmol/L (3.3-5.1); Sodium 142 mmol/L (135-145); Total Protein 7.3 g/dL (6.5-8.0)
[2024-02-04 20:11] LABS: Troponin-I High Sensitivity < 2.7 ng/L (<3.5-35.0)
[2024-02-04 20:59] LABS: INTERNATIONAL NORM RATIO 1.4 (0.9-1.1); Prothrombin Time 16.9 SEC (11.1-13.3)
[2024-02-04 23:09] LABS: Troponin-I High Sensitivity < 2.7 ng/L (<3.5-35.0)
[2024-02-04 23:20] VITALS: BP 119/70; PULSE 55; RESP 16; TEMP 36.5; O2SAT 98
[2024-02-04 23:45] VITALS: BP 119/70; PULSE 55; RESP 16; TEMP 36.5; O2SAT 98
== END 2024-02-04 23:46 | disposition home or self-care (01) ==
PROVIDERS: Registered Nurse Emergency; Emergency Provider Emergency Medicine; PCP Internal Medicine
DX: R07.9 Chest pain, unspecified (principal); I10 Essential (primary) hypertension; E78.5 Hyperlipidemia, unspecified
CPT/HCPCS: 36415; 71046; 80053; 84484; 85025; 85610; 93005; 99283; 99285

== ENCOUNTER 2024-02-26 09:29 | Emergency (ER) | payer OTHER, SELFPAY ==
[2024-02-26 09:33] VITALS: BP 130/71; PULSE 77; RESP 19; TEMP 36.6; O2SAT 98; BMI 31.2
--- NOTE | 2024-02-26 09:36 | ED_ITS ---
HPI - Wound/Laceration General Chief Complaint: Wound/Laceration Stated Complaint: Ingrown hair Time Seen by Provider: 02/26/24 09:36 Source: patient, RN notes reviewed and old records reviewed Mode of arrival: ambulatory Limitations: no limitations History of Present Illness ED Provider: SHANT BRUNER PA-C HPI narrative: 49 year old male with pmhx significant for HTN, HDL, and ERIN on CPAP presents to the ED today for evaluation of ingrown hair to face x2 days. Reports swelling/ pain to his left chin. he believes he may have an ingrown hair there. denies drainage. reports history of similar in the past. denies fever/chills, N/V, dental or jaw pain, neck swelling, dysphagia or odynophagia. Related Data Previous Rx's ?Medication ?Instructions ?Recorded Lactobacillus rhamnosus GG 15 1 cap PO DAILY #30 caps 06/27/23 billion cell sprinkle capsule (Culturelle) sulfamethoxazole 800 1 tab PO BID #13 tabs 06/27/23 mg-trimethoprim 160 mg tablet (Bactrim DS) cephalexin 500 mg capsule 500 mg PO BID 7 days #14 caps 02/26/24 doxycycline hyclate 100 mg tablet 100 mg PO BID 7 days #14 tabs 02/26/24 Allergies Allergy/AdvReac Type Severity Reaction Status Date / Time No Known Allergies Allergy Verified 02/26/24 09:34 Review of Systems 2 Review of Systems: Constitutional: No fever, chills, fatigue, night sweats, weight changes ENT/Mouth: No ear pain, hearing loss, nasal congestion, sinus pain, rhinorrhea, sore throat Eyes: No eye pain, swelling, redness, vision changes, discharge Cardio: No chest pain, palpitations, SEWELL, orthopnea, peripheral edema Pulm: No SOB, cough, sputum, wheezing, dyspnea, hemoptysis GI: No nausea, vomiting, hematemesis, abdominal pain, diarrhea, constipation, hematochezia, melena : No irregular bleeding, dysuria, frequency, urgency, hesitancy, hematuria, flank pain, urinary flow changes, urinary incontinence or retention MSK: No back pain, neck pain, joint pain, myalgias Skin: No lesions, rashes, +swelling/ erythema to left chin Neuro: No weakness, numbness, paresthesias, LOC, dizziness, headache Psych: No anxiety/panic, depression, SI/HI, AH/VH All other systems reviewed and are negative. [facility] Past Medical History Attestation statement: The following information was validated with the patient. 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 posterior oropharynx wnl. no LAD or anterior neck swelling. dentition wnl. Head: Yes normal to inspection, Yes No palpable skull fracture present, Yes normocephalic and Yes atraumatic Face images: 1. small 2cm area of induration noted to left chin along nolan line with minimal erythema and central pointing at the hair follicle. no active bleeding or discharge. ttp, warm. Mouth: Normal oral and palatal mucosa present Teeth and gingiva: dentition normal Throat: Yes posterior oropharynx normal Eyes: General: appearance normal, both eyes and all related structures P upils: Equal, round and reactive pupils present Neck: Neck: Yes normal visual inspection and Yes no lymphadenopathy Resp: Effort & Inspection: normal respiratory effort and able to speak in complete sentences Auscultation: clear to auscultation bilaterally Cardio: Rate: regular rate Rhythm: regular rhythm Skin: Other: see above Neuro: General: patient oriented x3 Cranial nerves: Yes Equal, round and reactive pupils present Course Course Course Narrative: 1000-- Attempted needle I&D. I was able to express approx 1ml of purulent drainage with minimal blood. gram stain and culture sent to lab. will discharge patient with doxy and keflex for suspected folliculitis. informed patient we will call him in a few days if these need to be adjusted. patient is agreeable with this. Patient has remained stable throughout ED visit today. Discussed worrisome signs and symptoms and when to return to the ED. All questions answered at this time. Patient is agreeable with disposition and stable for discharge. Medical Decision Making Medical Decision Making MDM Narrative: 49 year old male with pmhx significant for HTN, HDL, and ERIN on CPAP presents to the ED today for evaluation of ingrown hair to face x2 days. Vital signs stable. afebrile. He is nontoxic appearing and in NAD. sitting comfortably on the exam bed. On facial exam there is a small 2cm area of induration noted to left chin along nolan line with minimal erythema and central pointing at the hair follicle. no active bleeding or discharge. ttp, warm. no trismus. posterior oropharynx wnl. no LAD or anterior neck swelling. dentition wnl. Differntial diagnosis includes folliculitis, cellulitis, abscess. unlikely osteo, dental abscess, lugwigs angina Plan for I&D, gram stain and culture, disposition. Differential Diagnosis Differential Diagnoses: The differential diagnosis associated with the presentation includes as above. Admission/Observation Not indicated. Prescription Management I considered prescription management with: Antibiotic (keflex, doxy) Social Determinants Patient?s care significantly limited by Social Determinants of Health including: Other Social Determinant of Health Procedures Abscess I/D Site: face Side (if applicable): left Sedation/analgesia: none Technique: needle aspiration Amount of fluid expressed (mL): 1 Sent for culture/gram staining?: Yes Irrigation: Yes Packing used?: none Critical Care Time Critical Care Time Critical Care Time: No Discharge Plan Discharge Clinical Impression: Folliculitis Patient Disposition: Home, Self-Care Instructions: Folliculitis (ED) Additional Instructions: The abscess on your face was drained today. Keflex is an antibiotic that has been sent to your pharmacy. Take this twice times daily for the next 7 days. Doxycycline is an antibiotic that has been sent to your pharmacy. Take this twice daily for the next 7 days. Take all antibiotics to completion. Do not skip any doses. A culture was sent to the lab. If you require an adjustment to your antibiotics, you will be contacted in 2-3 days. Follow up with your PCP. Return with new or worsening symptoms. In the case of an emergency call 911. Prescriptions: New cephalexin 500 mg capsule 500 mg PO BID 7 Days Qty: 14 0RF doxycycline hyclate 100 mg tablet 100 mg PO BID 7 Days Qty: 14 0RF No Action sulfamethoxazole-trimethoprim [Bactrim DS] 800-160 mg tablet 1 tab PO BID Qty: 13 0RF Culturelle 15 billion cell capsule, sprinkle 1 cap PO DAILY Qty: 30 0RF Referrals: Birdie Chicas MD [Primary Care Provider] - Print Language: [place]
[2024-02-26 10:28] VITALS: BP 135/84; PULSE 88; RESP 17; TEMP 36.9; O2SAT 98
== END 2024-02-26 10:37 | disposition home or self-care (01) ==
PROVIDERS: Emergency Provider Emergency Medicine Emergency Medical Services; PCP Internal Medicine
DX: L73.9 Follicular disorder, unspecified (principal); I10 Essential (primary) hypertension; E78.5 Hyperlipidemia, unspecified
CPT/HCPCS: 10160; 87070; 87077; 87186; 87205; 99282; 99284

== ENCOUNTER 2024-05-02 08:40 | Outpatient (REF) | payer OTHER, SELFPAY ==
[2024-05-02 08:53] LABS: MANUAL DIFF FLAG NO
[2024-05-02 09:34] LABS: Basophils Absolute Auto 0.1 X10*3/uL (0.0-0.2); Basophils Percent Auto 0.7 % (0-2); Eosinophils Absolute Auto 0.1 X10*3/uL (0.0-0.4); Eosinophils Percent Auto 1.4 % (0-4); Hematocrit 40.1 % (42.0-52.0); Hemoglobin 13.4 g/dl (14.0-18.0); Imm Gran Abs Auto 0.03 X10*3/uL (0.00-0.03); Imm Gran Pct Auto 0.4 % (0.0-0.4); Lymphocytes Absolute Auto 2.3 X10*3/uL (1.2-4.9); Lymphocytes Percent Auto 32.3 % (20-40); Mean Corpuscular HGB Conc 33.4 g/dl (31.0-36.0); Mean Corpuscular Hemoglobin 29.3 pg (27.0-33.0); Mean Corpuscular Volume 87.6 fL (80.0-98.0); Monocytes Absolute Auto 0.7 X10*3/uL (0.1-1.2); Monocytes Percent Auto 9.3 % (2-11); Neutrophils Percent Auto 55.9 % (45-73); Platelet Count 316 X10*3/uL (160-400); Red Blood Count 4.58 X10*6/uL (4.60-5.80); Red Cell Distribution Width 13.2 % (11.0-16.0); White Blood Count 7.1 X10*3/uL (4.8-10.8)
[2024-05-02 10:09] LABS: Alanine Aminotransferase 25 U/L (0-40); Albumin Level 4.1 g/dL (3.5-5.0); Alkaline Phosphatase 57 U/L (39-117); Anion Gap 10 (12-20); Aspartate Amino Transferase 18 U/L (5-37); Bilirubin Total 0.6 mg/dL (0.0-1.0); Blood Urea Nitrogen 17 mg/dL (9-16); Calcium 9.2 mg/dL (8.4-10.2); Carbon Dioxide 27 mmol/L (22-29); Chloride 107 mmol/L (96-108); Cholesterol 158 mg/dL (<200); Estimated Glomerular Filt Rate > 60; Glucose Random 98 mg/dL (60-115); HDL Cholesterol 38 mg/dL (>40); LDL Cholesterol Calculated 103 mg/dL (<100); Potassium 4.2 mmol/L (3.3-5.1); Sodium 140 mmol/L (135-145); Total Protein 7.3 g/dL (6.5-8.0); Triglycerides 87 mg/dL (<150)
[2024-05-02 10:27] LABS: Thyroid Stimulating Hormone 1.45 uIU/mL (0.32-4.0)
== END 2024-05-02 08:41 | disposition home or self-care (01) ==
LOC: HO.LAB 08:40
PROVIDERS: PCP Internal Medicine; Visit Provider Internal Medicine
DX: E78.2 Mixed hyperlipidemia (principal); G47.33 Obstructive sleep apnea (adult) (pediatric); I10 Essential (primary) hypertension; Z68.32 Body mass index [BMI] 32.0-32.9, adult
CPT/HCPCS: 36415; 80053; 80061; 84443; 85025

== ENCOUNTER 2024-10-13 23:10 | Emergency (ER) | payer OTHER, SELFPAY ==
[2024-10-13 23:18] VITALS: BP 133/85; PULSE 70; RESP 18; TEMP 36.8; O2SAT 96; BMI 31.7
[2024-10-14] MEDS: Acetaminophen 325 MG TABLET 975 MG PO (03:02)
--- NOTE | 2024-10-14 03:30 | ED_ITS ---
HPI - Dental/Oral General Chief complaint: Dental/Oral Stated complaint: dental pain Time Seen by Provider: 10/14/24 03:18 Source: patient Mode of arrival: ambulatory Limitations: no limitations History of Present Illness ED Provider: Dr. Onelia Melara HPI Narrative: patient comes to the emergency room complaining of dental pain for 3 days. Patient states that it is in the maxillary side left side. Patient went to urgent care 3 days ago, diagnosed with a dental abscess. Prescribed diclofenac and Augmentin. Patient states that he has been taking his medications as prescribed +Tylenol and the pain is not getting any better. Patient denies fever chills. Denies difficulty swallowing. Denies any recent injuries. Related Data Previous Rx's ?Medication ?Instructions ?Recorded Lactobacillus rhamnosus GG 15 1 cap PO DAILY #30 caps 06/27/23 billion cell sprinkle capsule (Culturelle) sulfamethoxazole 800 1 tab PO BID #13 tabs 06/27/23 mg-trimethoprim 160 mg tablet (Bactrim DS) cephalexin 500 mg capsule 500 mg PO BID 7 days #14 caps 02/26/24 doxycycline hyclate 100 mg tablet 100 mg PO BID 7 days #14 tabs 02/26/24 oxycodone 5 mg tablet 5 mg PO BID PRN pain #7 tabs 10/14/24 Allergies Allergy/AdvReac Type Severity Reaction Status Date / Time No Known Allergies Allergy Verified 10/13/24 23:21 Review of Systems Review of Systems: Constitutional : No Weight loss, No Fever, No Chills, No Night Sweats, No Fatigue, No Malaise ENT/Mouth : Complaining of dental pain, No Hearing loss, No Ear Pain, No Nasal Congestion, No Sinus Pain, No Hoarseness, No sore throat, No Rhinorrhea, No Swallowing Difficulty Eyes: No Eye Pain, No Swelling, No Redness, No Foreign Body, No Discharge, No Vision Changes Cardiovascular : No Chest Pain, No SOB, No Dyspnea on Exertion, No Orthopnea, No Edema, No Palpitations Respiratory : No Cough, No Sputum, No Wheezing, No Smoke Exposure, No Dyspnea Gastrointestinal : No Nausea, No Vomiting, No Diarrhea, No Constipation, No abdominal Pain, No Hematochezia, No Melena Genitourinary : no irregular bleeding, No Dysuria, No Urinary Frequency, No Hematuria, No Urinary Incontinence, No Urgency, No Flank Pain, No Urinary Flow Changes, No Hesitancy Musculoskeletal : No joint pain, No Myalgias, No Joint Swelling Skin : No Skin Lesions, No rash Neuro : No Weakness, No Numbness, No Paresthesias, No Loss of Consciousness, No Dizziness, No Headache Psych : No Anxiety/Panic, No Depression, No SI/HI/AH/VH, No Social Issues, Heme/Lymph: No Bruising, No Bleeding,No Lymphadenopathy Endocrine : No Polyuria, No Polydipsia, No Temperature Intolerance [facility] Past Medical History Medical History Environmental allergies Obstructive sleep apnea HLD (hyperlipidemia) HTN (hypertension) Surgical History Hx of colonoscopy No pertinent past surgical history Social History Social History Patient Tobacco Use Status: Never used Tobacco Advance Directives: No Current occupational status: employed 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 Oriented X3. No acute distress. Eyes: Pupils equal, round and reactive to light. ENT: Pharynx normal. no visualized abscesses, no erythema, no facial swelling Neck: Normal inspection. Neck supple. No lymph nodes noted. No crepitus CVS: Normal heart rate and rhythm. Pulses normal. Normal S1 and S2 Respiratory: No respiratory distress. Breath sounds normal. No Wheezing. No rales Abdomen: Soft and nontender. No rigidity. No distention. Skin: Skin warm and dry. Normal skin color. Normal skin turgor. Extremities: No lower extremity edema. No Lacerations. No Rash Neuro: Oriented X 3. No motor deficit. No sensory deficit. Moving all ex tremities. No slurred speech. CN 2 through 12 grossly intact Psych: calm, cooperative, normal affect Medications Administered Discontinued Medications Generic Name Dose Route Start Last Admin Trade Name Freq PRN Reason Stop Dose Admin Acetaminophen 975 mg 10/14/24 02:57 10/14/24 03:02 Acetaminophen 325 Mg Tablet PO 10/14/24 02:58 975 mg ONCE ONE Administration Medical Decision Making Medical Decision Making [facility] Narrative: patient is already on the correct antibiotics, no signs of worsening infection. Patient already taking diclofenac and Augmentin . Discussed with the patient that we can not give him oxycodone, and instructed to take it only if the coughing neck does not work. To avoid using narcotics. Patient agrees with plan patient was given a dose of oxycodone here in the emergency room. Discharge Plan Discharge Clinical Impression: Pain, dental Patient Disposition: Home, Self-Care Instructions: Toothache (ED) Additional Instructions: Please follow-up with your primary care physician tomorrow. If you have any worsening or new symptoms, please return to the emergency room or call 911 Prescriptions: New oxycodone 5 mg tablet 5 mg PO BID PRN (Reason: pain) Qty: 7 0RF Rx Instructions: Partial Fill upon patient request. No Action sulfamethoxazole-trimethoprim [Bactrim DS] 800-160 mg tablet 1 tab PO BID Qty: 13 0RF Culturelle 15 billion cell capsule, sprinkle 1 cap PO DAILY Qty: 30 0RF cephalexin 500 mg capsule 500 mg PO BID 7 Days Qty: 14 0RF doxycycline hyclate 100 mg tablet 100 mg PO BID 7 Days Qty: 14 0RF Stand Alone Forms: Work/School Release Print Language: Tanzanian
[2024-10-14 03:37] VITALS: BP 130/62; PULSE 65; RESP 16; TEMP 37; O2SAT 98
[2024-10-14] MEDS: oxyCODONE HCl Immed Release 5 MG TABLET PO (03:37)
[2024-10-14 03:40] VITALS: BP 130/62; PULSE 65; RESP 16; TEMP 37; O2SAT 98
== END 2024-10-14 03:40 | disposition home or self-care (01) ==
PROVIDERS: Emergency Provider Emergency Medicine; PCP Internal Medicine
DX: K08.89 Other specified disorders of teeth and supporting structures (principal)
CPT/HCPCS: 99283; 99284

== ENCOUNTER 2024-10-30 16:16 | Outpatient (REF) | payer OTHER, SELFPAY ==
[2024-10-30 19:53] LABS: Alanine Aminotransferase 52 U/L (0-40); Albumin Level 4.1 g/dL (3.5-5.0); Alkaline Phosphatase 60 U/L (39-117); Anion Gap 9 (12-20); Aspartate Amino Transferase 31 U/L (5-37); Bilirubin Total 0.3 mg/dL (0.0-1.0); Blood Urea Nitrogen 19 mg/dL (9-16); Carbon Dioxide 25 mmol/L (22-29); Chloride 110 mmol/L (96-108); Estimated Glomerular Filt Rate > 60; Glucose Random 95 mg/dL (60-115); Potassium 3.8 mmol/L (3.3-5.1); Sodium 140 mmol/L (135-145); Total Protein 7.1 g/dL (6.5-8.0)
== END 2024-10-30 16:17 | disposition home or self-care (01) ==
LOC: HO.LAB 16:16
PROVIDERS: PCP Internal Medicine; Visit Provider Internal Medicine
DX: Z00.00 Encounter for general adult medical examination without abnormal findings (principal); E78.2 Mixed hyperlipidemia; G47.33 Obstructive sleep apnea (adult) (pediatric); I10 Essential (primary) hypertension
CPT/HCPCS: 36415; 80053

== ENCOUNTER 2025-05-29 08:43 | Outpatient (REF) | payer OTHER, SELFPAY ==
[2025-05-29 10:34] LABS: Alanine Aminotransferase 27 U/L (0-40); Albumin Level 4.2 g/dL (3.5-5.0); Alkaline Phosphatase 67 U/L (39-117); Anion Gap 12 (12-20); Aspartate Amino Transferase 32 U/L (5-37); Blood Urea Nitrogen 20 mg/dL (9-16); Calcium 8.8 mg/dL (8.4-10.2); Carbon Dioxide 24 mmol/L (22-29); Chloride 108 mmol/L (96-108); Cholesterol 156 mg/dL (<200); Estimated Glomerular Filt Rate > 60; HDL Cholesterol 36 mg/dL (>40); Potassium 4.0 mmol/L (3.3-5.1); Sodium 140 mmol/L (135-145); Total Protein 7.3 g/dL (6.5-8.0); Triglycerides 96 mg/dL (<150)
[2025-05-29 10:47] LABS: Prostate Specific Antigen 0.53 ng/mL (<0.05-4.0)
== END 2025-05-29 08:44 | disposition home or self-care (01) ==
LOC: HO.LAB 08:43
PROVIDERS: PCP Internal Medicine; Visit Provider Internal Medicine
DX: G47.33 Obstructive sleep apnea (adult) (pediatric) (principal); I10 Essential (primary) hypertension; M26.622 Arthralgia of left temporomandibular joint; N40.0 Benign prostatic hyperplasia without lower urinary tract symptoms; R74.01 Elevation of levels of liver transaminase levels; Z12.5 Encounter for screening for malignant neoplasm of prostate
CPT/HCPCS: 36415; 80053; 80061; 84153